=== PATIENT | male | born 2000 | race American Indian/Alaskan Native ===

== ENCOUNTER 2018-09-12 17:48 | Emergency (ER) | payer OTHER ==
[2018-09-12 18:11] VITALS: BP 116/72; PULSE 61; RESP 18; TEMP 98; O2SAT 100; BMI 20.9
--- NOTE | 2018-09-12 19:09 | ED PDOC ---
Arrival/HPI - General Chief Complaint: Groin Pain Time Seen by Provider: 09/12/18 18:30 Historian: Patient - History of Present Illness Narrative History of Present Illness (Text): 09/12/18 19:34 18-year-old male with no significant PMH, complains of pain to b/l groin, 2 painless penile lesions and dysuria. Otherwise: (+) sexually active, (-) changes in sexual partners, (-) abdominal pain, (-) nausea/vomiting, (-) diarrhea, (-) fever, (-) discharge, (-) hematuria. PMD none Past Medical History - Infectious Disease Hx of Infectious Diseases: None - Psychiatric Hx Substance Use: No Family/Social History Family/Social History: No Known Family HX Smoking Status: Never Smoked Hx Alcohol Use: No Hx Substance Use: No Allergies/Home Meds Allergies/Adverse Reactions: Allergies No Known Allergies Allergy (Verified 09/12/18 18:13) Home Medications: Home Meds Medication Instructions Recorded Confirmed No Known Home Med 09/12/18 09/12/18 Review of Systems - Review of Systems Constitutional: absent: Fatigue, Fevers Respiratory: absent: SOB, Cough Cardiovascular: absent: Chest Pain, Palpitations Gastrointestinal: absent: Abdominal Pain, Nausea, Vomiting Genitourinary Male: Dysuria, Other (+penile lesions). absent: Frequency, Hematuria Musculoskeletal: absent: Arthralgias, Back Pain, Neck Pain Skin: absent: Rash, Laceration, Abscess Physical Exam Vital Signs Temp Pulse Resp BP Pulse Ox 09/12/18 18:11 98.0 F 61 18 116/72 100 Temperature: Afebrile Blood Pressure: Normal Pulse: Regular Respiratory Rate: Normal Appearance: Positive for: Well-Appearing, Non-Toxic, Comfortable Pain Distress: None Mental Status: Positive for: Alert and Oriented X 3 - Systems Exam Head: Present: Atraumatic, Normocephalic Pupils: Present: PERRL Extroacular Muscles: Present: EOMI Conjunctiva: Present: Normal Mouth: Present: Moist Mucous Membranes Neck: Present: Normal Range of Motion Respiratory/Chest: Present: Clear to Auscultation, Good Air Exchange. No: Respiratory Distress, Accessory Muscle Use Cardiovascular: Present: Regular Rate and Rhythm, Normal S1, S2. No: Murmurs Abdomen: No: Tenderness, Distention, Peritoneal Signs Genitourinary Male: Present: Circumcised Penis, Other (+2 small non-tender ulcers to the head of the penis, +tender b/l inguinal lymphadenopathy). No: Penile Discharge, Testicle Tenderness, Hernias, Testicle Swelling Back: Present: Normal Inspection Upper Extremity: Present: Normal Inspection. No: Cyanosis, Edema Lower Extremity: Present: Normal Inspection. No: Edema Neurological: Present: GCS=15, CN II-XII Intact, Speech Normal Skin: Present: Warm, Dry, Normal Color. No: Rashes Psychiatric: Present: Alert, Oriented x 3, Normal Insight, Normal Concentration Medical Decision Making ED Course and Treatment: 09/12/18 19:06 Patient medicated with rocephin 250 mg IM and zithromax 1 g PO. GC cx sent. Diagnosis of urethritis due to either gonorrhea or chlamydia, and chancroid d/w the patient, advised of further need for STD testing, as well has his partner, who should be tested and treated. Advised to follow up with the clinic in 1-2 days without fail. Return to the emergency room at any time for any new or worsening symptoms. Patient states he fully agrees with and understands discharge instructions. States that he agrees with the plan and disposition. Verbalized and repeated discharge instructions and plan. I have given the patient opportunity to ask any additional questions. - Medication Orders Current Medication Orders: Azithromycin (Zithromax) 1,000 mg PO STAT STA; Protocol Stop: 09/12/18 19:05 Discontinued Medications Ceftriaxone Sodium (Rocephin) 250 mg IM STAT STA; Protocol Stop: 09/12/18 19:02 - PA / [employer] / Resident Statement MD/DO has reviewed & agrees with the documentation as recorded. Disposition/Present on Arrival - Present on Arrival Any Indicators Present on Arrival: No History of DVT/PE: No History of Uncontrolled Diabetes: No Urinary Catheter: No History of Decub. Ulcer: No History Surgical Site Infection Following: None - Disposition Have Diagnosis and Disposition been Completed?: Yes Diagnosis: Chancroid, Urethritis Disposition: HOME/ ROUTINE Disposition Time: 19:00 Patient Plan: Discharge Patient Problems: Current Active Problems Problem Status Onset Chancroid Acute Urethritis Acute Condition: STABLE Discharge Instructions (ExitCare): Urethritis (DC), Sexually-Transmitted Diseases (DC), STD Prevention Additional Instructions: Thank you for letting us take care of you today. You were treated for ur ethritis, chancroid. The emergency medical care you received today was directed at your acute symptoms. It may take several days for your symptoms to resolve. Return to the Emergency Department if your symptoms worsen, do not improve, or if you have any other problems. Please contact your doctor in 2 days for re-evaluation and follow up / or call one of the physicians/clinics you have been referred to that are listed on the Patient Visit Information form that is included in your discharge packet. Bring any paperwork you were given at discharge with you along with any medications you are taking to your follow up visit. Our treatment cannot replace ongoing medical care by a primary care provider (PCP) outside of the emergency department. Thank you for allowing the [employer] team to be part of your care today. If you had an STI test: It will take 48 hours for the results. Please call after 1 week if you have not heard back. Referrals: Lazaro [facility] [employer] [Outside] - Follow up with primary [facility] [Outside] - Follow up with primary Forms: [employer] (Croatian), WORK NOTE
[2018-09-12] MEDS: cefTRIAXone (Rocephin) 250 mg Inj IM STA (19:29)
== END 2018-09-12 19:41 | disposition home or self-care (01) ==
LOC: ED 17:48
DX: A57 Chancroid (principal); N34.2 Other urethritis
CPT/HCPCS: 87491; 87591; 96372; 99281; J0696

== ENCOUNTER 2018-10-29 18:15 | Emergency (ER) | payer SELFPAY ==
[2018-10-29 18:16] VITALS: BMI 20.9
[2018-10-29 18:22] VITALS: RESP 18; TEMP 98
[2018-10-29] MEDS ORDERED: cefTRIAXone (Rocephin) 250 mg Inj IM STA (18:46)
--- NOTE | 2018-10-29 19:14 | ED PDOC ---
Arrival/HPI - General Chief Complaint: Female Genitourinary Time Seen by Provider: 10/29/18 18:16 Historian: Patient - History of Present Illness Narrative History of Present Illness (Text): 10/29/18 19:06 18-year-old male presents today with a four-day history of rash to the penis. Patient states he has a burning sensation at the tip of the penis and noticed some swelling to the tip of the penis. Patient states that then he noticed a ulceration that formed at the tip of the penis. He is complaining of slight pain to the site. He denies fevers or chills. Denies penile discharge. Denies testicular pain. Denies urinary symptoms. Patient denies abdominal pain. Patient states he has a history of chlamydia 2 months ago. No other complaints Time/Duration: Other (4 days) Quality: Burning Severity Level: Mild Past Medical History - Provider Review Nursing Documentation Reviewed: Yes - Travel History Have you recently traveled outside [place] w/in the past 3 mons?: No - Infectious Disease Hx of Infectious Diseases: None - Genitourinary/Gynecological Hx Sexually Transmitted Diseases: Yes - Psychiatric Hx Substance Use: No Family/Social History - Physician Review Nursing Documentation Reviewed: Yes Family/Social History: Unknown Family HX Smoking Status: Never Smoked Hx Alcohol Use: No Hx Substance Use: No Allergies/Home Meds Allergies/Adverse Reactions: Allergies No Known Allergies Allergy (Verified 09/12/18 18:13) Home Medications: Home Meds Medication Instructions Recorded Confirmed No Known Home Med 09/12/18 09/12/18 Review of Systems - Review of Systems Constitutional: absent: Fatigue, Fevers Respiratory: absent: SOB, Cough Cardiovascular: absent: Chest Pain, Palpitations Gastrointestinal: absent: Abdominal Pain, Nausea, Vomiting Skin: Rash. absent: Pruritis Neurological: absent: Headache, Dizziness Psychiatric: absent: Anxiety, Depression Physical Exam Vital Signs Reviewed: Yes Vital Signs Temp Pulse Resp BP Pulse Ox 10/29/18 18:16 98 F 68 18 116/70 100 Temperature: Afebrile Blood Pressure: Normal Pulse: Regular Respiratory Rate: Normal Appearance: Positive for: Well-Appearing, Non-Toxic, Comfortable Pain Distress: None Mental Status: Positive for: Alert and Oriented X 3 - Systems Exam Head: Present: Atraumatic Mouth: Present: Moist Mucous Membranes Pharnyx: Present: Normal Neck: Present: Normal Range of Motion Respiratory/Chest: Present: Clear to Auscultation Cardiovascular: Present: Regular Rate and Rhythm Abdomen: No: Tenderness, Distention, Rebound, Guarding Genitourinary Male: Present: Circumcised Penis, Other (chaparoned by dr. Rothman). No: Normal External Genitalia (there is 6mm ulceration noted to the distal tip of the penis; minimal tenderness to ulcer. no surrounding erythema), Penile Discharge Neurological: Present: GCS=15 Skin: Present: Warm, Dry Psychiatric: Present: Alert, Oriented x 3 Medical Decision Making ED Course and Treatment: 10/29/18 19:17 18-year-old male with a painful lesion to the penis 4 days. Patient seen and evaluated by Dr. rothman Wound culture sent. RPR pending Gonorrhea and Chlamydia cultures sent Lesion is painful so is less likely chancre. We will send RPR. Lesion does not appear to be vesicular. Patient treated with Rocephin and Zithromax covering for chancroid and gonorrhea and Chlamydia. Advised patient of the need for follow-up with the primary care physician. Advised the patient we will contact him when the lab and urine results come in. Advised patient to follow-up with the urologist and return immediately if symptoms worsen persist or if new concerning symptoms develop Patient verbalizes understanding of discharge instructions and need for immediate followup. all aspects of this case were discussed the attending of record. Impression: Lesion to penis Follow-up with urologist within the next 2 days Follow-up with the primary care physician within the next 2 days Return immediately if symptoms worsen persist or if new concerning symptoms develop - Medication Orders Current Medication Orders: Discontinued Medications Azithromycin (Zithromax) 1,000 mg PO STAT STA; Protocol Stop: 10/29/18 18:47 Ceftriaxone Sodium (Rocephin) 250 mg IM STAT STA; Protocol Stop: 10/29/18 18:47 Disposition/Present on Arrival - Present on Arrival Any Indicators Present on Arrival: No History of DVT/PE: No History of Uncontrolled Diabetes: No Urinary Catheter: No History of Decub. Ulcer: No History Surgical Site Infection Following: None - Disposition Have Diagnosis and Disposition been Completed?: Yes Diagnosis: Penile lesion Disposition: HOME/ ROUTINE Disposition Time: :19 Patient Plan: Discharge Condition: GOOD Additional Instructions: Follow-up with urologist within the next 2 days Follow-up with the primary care physician within the next 2 days Return immediately if symptoms worsen persist or if new concerning symptoms develop Referrals: Kojo Duarte MD [Staff Provider] - Follow up with primary Bharat Jain MD [Staff Provider] - Follow up with primary Nisha Stephen MD [Medical Doctor] - Follow up with primary [employer] [Outside] - Follow up with primary Forms: WORK NOTE
[2018-10-29] MEDS ORDERED: Lidocaine 1% Inj (20ml) ONE (19:30)
[2018-10-29 19:49] VITALS: BP 121/85; PULSE 80; O2SAT 99
== END 2018-10-29 19:49 | disposition home or self-care (01) ==
LOC: ED 18:15
DX: N48.89 Other specified disorders of penis (principal)
CPT/HCPCS: 86592; 87070; 87491; 87591; 96372; 99281; J0696